=== PATIENT | female | born 1990 | race Caucasian/White ===

== ENCOUNTER 2017-05-04 08:44 | Emergency (ER) | payer SELFPAY ==
[~2017-05-04] VITALS: Ht 157.5 cm; Wt 56.8 kg
[2017-05-04 08:59] VITALS: BP 124/72
== END 2017-05-04 09:12 | disposition home or self-care (01) ==
LOC: EMS 08:46 → EEVIPCON 08:46 → EMS 09:12
DX: S16.1XXA Strain of muscle, fascia and tendon at neck level, initial encounter (principal); Z02.79 Encounter for issue of other medical certificate; X58.XXXA Exposure to other specified factors, initial encounter; Y93.89 Activity, other specified; Y92.9 Unspecified place or not applicable; Y99.9 Unspecified external cause status
CPT/HCPCS: 99283